=== PATIENT | male | born 1975 | race Caucasian/White ===

== ENCOUNTER → 2017-07-19 08:14 | Outpatient (CLI) | payer MEDICAID ==
[2015-10-19 08:26] VITALS: BMI 42.6
[~2017-07-19 08:14] MED LIST: CELEXA20 MG PO; GEMFIBROZIL600 MG PO; GLUCOPHAGE1000 MG PO; LISINOPRIL2.5 MG PO; NIACIN100 MG PO
== END | disposition home or self-care (01) ==
LOC: D.CT 08:14
DX: R10.9 Unspecified abdominal pain (principal)